=== PATIENT | male | born 1970 | race Caucasian/White ===

== ENCOUNTER → 2021-02-27 15:09 | Outpatient (CLI) | payer OTHER, SELFPAY ==
--- NOTE | ~2021-02-27 | XR_ITS ---
XR finger 3rd LT min 2V DATE: 02/27/2021 15:23 INDICATION: Left third finger mass TECHNIQUE: 4 views COMPARISON: None FINDINGS: There is focal prominent soft tissue thickening along the dorsal lateral aspect of the midd le phalanx. No fracture, dislocation, periosteal reaction or bone destruction. IMPRESSION: Focal soft tissue swelling of the mid digit Reviewed, dictated and finalized at location A.
== END ==
PROVIDERS: PCP Family Medicine Adolescent Medicine; Visit Provider Specialist
DX: R22.32 Localized swelling, mass and lump, left upper limb (principal)
CPT/HCPCS: 73140

== ENCOUNTER 2023-05-14 22:50 | Emergency (ER) | payer OTHER, SELFPAY ==
--- NOTE | ~2023-05-14 | CT_ITS ---
Non-contrast CT scan of the Abdomen and Pelvis Clinical indication: Right flank pain Technique: 2.5 mm axial scans were obtained through the abdomen and pelvis without intravenous or or al contrast. Dose reduction technique was used on this scan by utilizing automated exposure control a nd iterative reconstruction technique. The dose-length product (DLP) was 1092.66 mGy-cm. Findings: Images through the lung bases reveal no abnormalities. There is a 3 mm stone at the right UVJ, with mild right hydroureteronephrosis. No left renal or left ureteral stone. No left hydronephrosis. Diffuse fatty infiltration of the liver noted. The spleen, pancreas, gallbladder, and adrenals appear normal. There is no aortic aneurysm. There is no evidence of bowel obstruction. Normal appendix. Images through the pelvis were performed. There is no evidence of ascites or lymphadenopathy. Prostat e gland and seminal vesicles are unremarkable. Urinary bladder unremarkable. Impression: 3 mm right UVJ stone, with mild right hydroureteronephrosis. Diffuse fatty infiltration of the liver. Reviewed, dictated and finalized at [facility]. Impression: 3 mm right UVJ stone, with mild right hydroureteronephrosis. Diffuse fatty infiltration of the liver.
--- NOTE | 2023-05-14 22:53 | ED.ABDPAIN ---
HPI - Abdominal Pain General Chief Complaint: Back Pain/Injury Stated Complaint: Kidney Stone Time Seen by Provider: 05/14/23 22:51 Source: patient Mode of arrival: ambulatory Limitations: no limitations History of Present Illness HPI narrative: 52-year-old male a history kidney stones in 2005, 2007, status post ESBL,psoriasis, hypertension, diabetes mellitus presents to the ER with a 2 hour history of -- right flank pain radiating to his groin and testicle. Pain is intermittent. No aggravating or relieving factors. -- Nausea with 1 episode of vomiting. No fever MD elicited complaint: flank pain Pertinent past history: kidney stones Onset (ago): hour(s) ( started 2 hours ago) Pain Consistency: intermittent Location: R flank Severity: severe Quality: cramping Radiation: RLQ Exacerbating factors: nothing Relieving factors: nothing Associated symptoms: nausea and vomiting Related Data Home Medications Medication Instructions Recorded Confirmed guselkumab 100 mg/mL subcutaneous 100 mg subcut ONCE 09/19/22 05/14/23 auto-injector (Tremfya) sitagliptin phos 50 mg-metformin 2 tablet PO DAILY 03/01/23 05/14/23 ER 1,000 mg tablet,extend rel 24h mp (Janumet XR) Allergies Allergy/AdvReac Type Severity Reaction Status Date / Time No Known Allergies Allergy Mild Verified 02/06/23 15:19 Review of Systems Review of Systems: All systems reviewed & are unremarkable except as noted in HPI and below Constitutional: Constitutional: Reports as per HPI and Reports no additional constitutional complaints Eyes: Eyes: Reports as per HPI and Reports no additional eye complaints ENT: Reports system reviewed and no additional complaints, except as documented and Reports as per HPI Cardiovascular: Cardiovascular: Reports as per HPI and Reports no additional cardiovascular complaints Respiratory: Respiratory: Reports as per HPI and Reports no additional respiratory complaints Gastrointestinal: Gastrointestinal: Reports as per HPI and Reports no additional gastrointestinal complaints Comments: right flank pain radiating to his groin and right testicle Genitourinary: Genitourinary: Reports no additional male genitourinary complaints and Reports as per HPI Musculoskeletal: Musculoskeletal: Reports no additional musculoskeletal complaints and Reports as per HPI Integumentary/Breasts: Skin/Breast: Reports system reviewed and no additional complaints, except as docu and Reports as per HPI Neurologic: Reports system reviewed and no additional complaints, except as documented and Reports as per HPI Psychiatric: Psychiatric: Reports no additional psychiatric complaints and Reports as per HPI Endocrine: Endocrine: Reports no additional endocrine complaints and Reports as per HPI Hematologic/Lymphatic: Hematologic/Lymphatic: Reports no additional hematologic/lymphatic complaints and Reports as per HPI Allergic/Immunologic: Allergic/Immunologic: Reports no additional allergic/immunologic complaints and Reports as per HPI [facility], [facility] Past Medical History Medical History (Updated 05/15/23 @ 00:27 by Brian Armendariz MD) History of renal stone (~2005) Kidney stone Family History Family History Mother Hypertension Bladder cancer Social History Social History Smoking status: Never smoker Exam Const: General: ill appearing Nutritional Appearance: obese Orientation/consciousness: patient oriented x3 Limitations: no limitations HENMT: Head: normal to inspection Ears: external ears normal Face/Nose/Sinus: Normal external nose present Face and sinus: normal facial exam Throat: posterior oropharynx normal Eyes: Conjunctivae: conjunctivae normal Pupils: Equal, round and reactive pupils present EOM: EOMs intact bilaterally Direct Ophthalmoscopy: no photophobia Neck: Neck: normal visual inspection, n
[2023-05-14] MEDS: SODIUM CHLORIDE 0.9% IV 1,000 ML 1000 ML (23:00)
[2023-05-14] MEDS: KETOROLAC 30 MG/ML VIAL (*BKC) (23:00)
[2023-05-14 23:04] VITALS: BP 143/118; PULSE 92; RESP 20; TEMP 37.2; O2SAT 97
[2023-05-14 23:08] LABS: Basophils Absolute Auto 0.05 K/mm3 (0.00-0.10); Basophils Percent Auto 0.4 % (0.0-1.0); Eosinophils Absolute Auto 0.13 K/mm3 (0.02-0.50); Hematocrit 49.6 % (40.0-54.0); Hemoglobin 16.7 g/dL (14.0-18.0); Immature Granulocyte Absolute 0.04 K/mm3 (0.00-0.00); Immature Granulocyte Percent A 0.3 % (0.0-0.0); Lymphocytes Percent Auto 24.5 % (18.0-42.0); Mean Corpuscular HGB Conc 33.7 g/dL (32.0-36.0); Mean Corpuscular Hemoglobin 28.2 pg (27.0-31.0); Mean Corpuscular Volume 83.6 fL (78.0-102.0); Mean Platelet Volume 10.1 fl (8.7-11.0); Monocytes Percent Auto 6.9 % (2.0-11.0); Neutrophils Absolute Auto 8.7 K/mm3 (1.7-7.2); Neutrophils Percent Auto 66.9 % (50.0-70.0); Platelet Count Result 312 K/mm3 (150-420); Red Blood Count 5.93 M/mm3 (4.70-6.10)
[2023-05-14 23:23] LABS: Alanine Aminotransferase 48 U/L (16-63); Albumin Level 3.9 g/dL (3.4-5.0); Alkaline Phosphatase 84 U/L (46-116); Anion Gap 13 mmol/L (8-16); Aspartate Amino Transferase 28 U/L (15-37); Bilirubin,Total 0.6 mg/dL (0.00-1.00); Blood Urea Nitrogen 21 mg/dL (7-18); Calcium 9.4 mg/dL (8.5-10.1); Carbon Dioxide 25 mmol/L (21-32); Chloride 99 mmol/L (98-108); Estimated CRCL calculation 111 ml/min; Estimated Glomerular Filt Rate > 60; Glucose 185 mg/dL (70-99); Lipase 42 U/L (16-77); Osmolality Calculated 292 mOsm/kg (285-295); Potassium 3.9 mmol/L (3.5-5.1); Sodium 137 mmol/L (136-145)
[2023-05-14 23:27] LABS: Lactic Acid Reflex 2.7 mmol/L (0.4-2.0)
[2023-05-14 23:55] LABS: Appearance Urine Cloudy (Clear); Bilirubin Urine 1+ (Negative); Blood Urine 3+ (Negative); Glucose Urine UA Negative (Negative); Ketones Urine 1+ (Negative); Leukocyte Esterase Ur Trace LEU/UL (Negative); Nitrate Urine Negative (Negative); Protein Urine 2+ (Negative); Specific Grav Ur >= 1.030 (1.010-1.020); pH Urine 5.5 (5.0-8.0)
[2023-05-15 00:03] LABS: Add Urine Microscopic? YES; Bacteria Urine 1+ /hpf; Color Urine Dark Brown (Yellow); RBC Urine >75 /hpf (0-2); Squamous Epithelial Cell Urine Rare /hpf (Few)
[2023-05-15] MEDS: TAMSULOSIN HCL 0.4 MG CAPSULE PO (00:26)
[2023-05-15 00:44] VITALS: BP 144/96; PULSE 89; RESP 15; TEMP 36.6; O2SAT 98
[2023-05-15 02:05] LABS: Reflex Lactic Acid Yes or No Add Lactic
== END 2023-05-15 00:46 | disposition home or self-care (01) ==
LOC: CHSED 05-15 00:31
PROVIDERS: Emergency Provider Internal Medicine Critical Care Medicine
DX: N20.0 Calculus of kidney (principal); I10 Essential (primary) hypertension; E11.9 Type 2 diabetes mellitus without complications
CPT/HCPCS: 36415; 74176; 80053; 81001; 83605; 83690; 85025; 96361; 96374; 99284; A9270; J1885; J7030

== ENCOUNTER 2024-03-02 10:43 | Emergency (ER) | payer OTHER, SELFPAY ==
--- NOTE | ~2024-03-02 | CT_ITS ---
Non-contrast CT scan of the Abdomen and Pelvis Clinical indication: Right flank pain Technique: 2.5 mm axial scans were obtained through the abdomen and pelvis without intravenous or or al contrast. Dose reduction technique was used on this scan by utilizing automated exposure control a nd iterative reconstruction technique. The dose-length product (DLP) was 1786.78 mGy-cm. Findings: Images through the lung bases reveal no abnormalities. There is a 5-6 mm round stone at the mid right ureter, with mild to moderate right hydroureteronephro sis to this level. No left renal or left ureteral stone. No left hydronephrosis. Diffuse hepatic steatosis noted. The spleen, pancreas, gallbladder, and adrenals appear normal. Ther e is no aortic aneurysm. There is no evidence of bowel obstruction. Very small fat-containing umbilical hernia noted. Images through the pelvis were performed. There is no evidence of ascites or lymphadenopathy. Urinary bladder unremarkable. No pelvic mass seen. Impression: 5-6 mm mid right ureteral stone, as detailed above, with associated hydroureteronephrosis to this lev el. Reviewed, dictated and finalized at location M. Impression: 5-6 mm mid right ureteral stone, as detailed above, with associated hydroureter onephrosis to this level.
--- NOTE | ~2024-03-02 | XR_ITS ---
EXAMINATION: XR abdomen/kub 1V DATE: 03/02/2024 15:09 INDICATION: Nephrolithiasis with right flank pain TECHNIQUE: A supine view of the abdomen on 2 radiographs was obtained. COMPARISON: CT dated 03/02/2024 FINDINGS: Couple small phleboliths in the left and right pelvis. The stone identified in the mid right ureter o n prior CT is unable be identified on the provided radiographs density superimposed over the L5 verte bral body given the position on prior CT. No other evident urolithiasis. Normal bowel gas pattern. Sc lerotic bone islands in the right innominate bone. IMPRESSION: 1. Mid right ureteral stone seen on prior CT unable be identified on the plain radiographs, potential ly superimposed over the L5 vertebral body given the position on prior CT. Reviewed, dictated and finalized at location A. IMPRESSION: 1. Mid right ureteral stone seen on prior CT unable be identified on the plain radiographs, potentially superimposed over the L5 vertebral body given the posi tion on prior CT.
[2024-03-02 11:03] VITALS: BP 141/80; PULSE 75; RESP 18; TEMP 36.2; O2SAT 95
[2024-03-02 12:06] LABS: Basophils Percent Auto 0.2 % (0.2-1.2); Eosinophils Absolute Auto 0.1 K/mm3 (0-0.3); Eosinophils Percent Auto 0.6 % (0-4.4); Hematocrit 45.8 % (42.0-52.0); Hemoglobin 15.3 g/dL (14.0-18.0); Immature Granulocyte Absolute 0.04 K/mm3 (0.00-0.031); Immature Granulocyte Percent A 0.4 % (0-0.5); Lymphocytes Absolute Auto 2.23 K/mm3 (0.9-3.2); Lymphocytes Percent Auto 22.5 % (18.3-44.2); Mean Corpuscular HGB Conc 33.4 g/dl (32-36); Mean Corpuscular Hemoglobin 28.3 pg (26-34); Mean Corpuscular Volume 84.7 fl (80-100); Mean Platelet Volume 10.1 fl (7.4-10.4); Monocytes Absolute Auto 0.7 K/mm3 (0.1-0.6); Monocytes Percent Auto 7.2 % (2.6-8.5); Neutrophils Absolute Auto 6.9 K/mm3 (1.3-6.7); Neutrophils Percent Auto 69.1 % (45.5-73.1); Platelet Count Result 296 k/mm3 (150-375); Red Blood Count 5.41 M/mm3 (4.6-6.20); Red Cell Distribution Width 13.2 % (11.5-14.5); White Blood Count 9.9 K/mm3 (4.5-10.0)
[2024-03-02 12:13] LABS: Appearance Urine Clear (Clear); Bacteria Urine None Seen /hpf; Bilirubin Urine Negative (Negative); Blood Urine 3+ (Negative); Color Urine Yellow (Yellow); Glucose Urine UA Negative (Negative); Ketones Urine Trace mg/dL (Negative); Leukocyte Esterase Ur Negative LEU/UL (Negative); Nitrate Urine Negative (Negative); Non Pathogenic Casts 0-2; Protein Urine Negative (Negative); RBC Urine >100 /hpf (0-2); Specific Grav Ur 1.022 (1.001-1.035); Squamous Epithelial Cell Urine None Seen /hpf (Few); WBC Urine 0-5 /hpf (0-3); pH Urine 5.5 (5.0-9.0)
[2024-03-02 12:20] LABS: Alanine Aminotransferase 33 U/L (6-50); Albumin Level 4.4 g/dL (3.5-5.1); Alkaline Phosphatase 86 U/L (38-126); Anion Gap 6 mmol/L (4-12); Aspartate Amino Transferase 31 U/L (17-59); Bilirubin,Total 0.8 mg/dL (0.2-1.3); Blood Urea Nitrogen 21 mg/dL (9-20); Calcium 9.2 mg/dL (8.4-10.2); Carbon Dioxide 29 mmol/L (22-30); Chloride 98 mmol/L (98-107); Estimated CRCL calculation 87 ml/min; Estimated Glomerular Filt Rate > 60; Glucose 181 mg/dL (65-110); Potassium 3.8 mmol/L (3.4-5.0); Sodium 133 mmol/L (137-145)
[2024-03-02 12:26] LABS: Add Urine Microscopic? YES
[2024-03-02] MEDS: ONDANSETRON INJ 4 MG/2 ML VIAL IV PUSH (12:45)
--- NOTE | 2024-03-02 13:01 | ED.ABDPAIN ---
HPI - Abdominal Pain General Chief Complaint: Abdominal Pain Stated Complaint: kidney stone Time Seen by Provider: 03/02/24 12:19 History of Present Illness HPI narrative: Pt presents with intermittent right flank pain radiating to groing for the last few days. Pt has had similar issues over the last tow months and has kidney stones so he assumed it was a stone. Pt says he has been having intermittent pain for months but it was going away and not too severe unti it got worse over weekend. Related Data Home Medications Medication Instructions Recorded Confirmed guselkumab 100 mg/mL subcutaneous 100 mg subcut ONCE 09/19/22 10/03/23 auto-injector (Tremfya) Allergies Allergy/AdvReac Type Severity Reaction Status Date / Time No Known Allergies Allergy Mild Verified 03/02/24 10:44 Review of Systems Review of Systems: All systems reviewed & are unremarkable except as noted in HPI and below PMFSH Past Medical History Medical History History of renal stone (~2005) Kidney stone Family History Family History Mother Hypertension Bladder cancer Social History Social History Smoking status: Never smoker Exam Const: General: healthy appearing and no acute distress Nutritional Appearance: well nourished Orientation/consciousness: patient oriented x3 Limitations: no limitations Neck: Neck: normal visual inspection and no lymphadenopathy Resp: Effort & Inspection: normal respiratory effort Auscultation: clear to auscultation bilaterally Cardio: Rate: regular rate Rhythm: regular rhythm GI: GI Palp: Yes Soft to palpation Auscultation: normal bowel sounds Back/Spine/Pelvis: Back: CVA tenderness (right) Skin: General skin exam: normal color Rashes: no rashes Wounds: no wounds Neuro: General: patient oriented x3, moves all extremities and no focal motor deficits Speech: normal speech Extrem: General: normal to inspection and no clubbing, cyanosis or edema Psych: Mental Status: mental status grossly normal Affect: normal affect Course Vital Signs Vital signs: Vital Signs Temperature 97.1 F L 03/02/24 11:03 Pulse Rate 75 03/02/24 11:03 Respiratory Rate 18 03/02/24 11:03 Blood Pressure 141/80 H 03/02/24 11:03 Pulse Oximetry 95 03/02/24 11:03 Oxygen Delivery Room Air 03/02/24 11:03 Temperature 97.1 F L 03/02/24 11:03 Pulse Rate 74 03/02/24 14:56 Respiratory Rate 18 03/02/24 14:56 Blood Pressure 110/74 03/02/24 14:56 Pulse Oximetry 95 03/02/24 14:56 Oxygen Delivery Room Air 03/02/24 11:03 MDM - Abdominal Pain MDM Narrative Medical decision making narrative: Pt has right flank pain off and on for weeks worse last few days. Pt has 5-6 mm round stone mid ureter with mod hydro ua only blood. discussed with Dr Ramirez and agrees to see outpatient. Differential Diagnosis Differential diagnosis: Likely abdominal pain, calculus of kidney, constipation, diverticulitis, small bowel obstruction and other (back pain) Lab Data 03/02/24 11:56 03/02/24 11:55 Labs: Lab Results 03/02/24 03/02/24 Range/Units 11:55 11:56 WBC 9.9 (4.5-10.0) K/mm3 RBC 5.41 (4.6-6.20) M/mm3 Hgb 15.3 (14.0-18.0) g/dL Hct 45.8 (42.0-52.0) % MCV 84.7 (80-100) fl MCH 28.3 (26-34) pg MCHC 33.4 (32-36) g/dl RDW 13.2 (11.5-14.5) % Plt Count 296 (150-375) k/mm3 MPV 10.1 (7.4-10.4) fl Immature Gran % (Auto) 0.4 (0-0.5) % Neut % (Auto) 69.1 (45.5-73.1) % Lymph % (Auto) 22.5 (18.3-44.2) % [facility] % (Auto) 7.2 (2.6-8.5) % Eos % (Auto) 0.6 (0-4.4) % Baso % (Auto) 0.2 (0.2-1.2) % Lymph # (Auto) 2.23 (0.9-3.2) K/mm3 [facility] # (Auto) 0.7 H (0.1-0.6) K/mm3 Eos # (Auto) 0.1 (0-0.3) K/mm3 Baso # (Auto) 0.0 (0.0-0.1)
[2024-03-02 13:08] VITALS: BP 108/71; PULSE 64; RESP 20; O2SAT 94
[2024-03-02 14:56] VITALS: BP 110/74; PULSE 74; RESP 18; O2SAT 95
== END 2024-03-02 15:09 | disposition home or self-care (01) ==
PROVIDERS: Student in an Organized Health Care Education/Training Program; Emergency Provider Emergency Medicine; PCP Family Medicine Adolescent Medicine
DX: N13.2 Hydronephrosis with renal and ureteral calculous obstruction (principal); Z87.442 Personal history of urinary calculi
CPT/HCPCS: 36415; 74018; 74176; 80053; 81001; 85025; 96374; 99284; J2405

== ENCOUNTER 2025-08-13 08:38 | Emergency (ER) | payer BC, SELFPAY ==
--- OUTSIDE RECORDS SUMMARY | 2008-12-05 19:00 | XMS_ITS | Continuity of Care Document ---
Author Organization [facility] Address [address] [facility] [address] [place] [address] Phone Care Team Providers Care Creel Hand Name Role Phone Diann Vazquez DO Unavailable Unavailable Procedures Procedure Date Respirator Questionnaire Form Review Nov Audiogram Interpretation Only 8 Advance Directives Directive Yes / No Effective Date File Name No Information Encounters Encounter Description Practice Location Reason(s) For Visit Diagnoses Date Provider Providers Copied on Encounter [facility], [address], [address] [place] [address], tel:[phone] [facility] No Information 9 Taylor Tidwell. [address] [facility], [address], [address] [place] [address] , . tel: [phone] [facility], [address], [address] [place] [address], tel:[phone] [facility] No Information 8 Taylor Tidwell. [address], [address] [place] [address] , . tel: [phone] Family History Family Member Type Diagnosis Age At Onset No Information Payers Payer name Insurance type Covered alliance party ID Authoralbera gomez(s) [facility] [id number] Social History Type Description Quantity Date Captured Comments Sex Male Smoking Status No Information Chief Complaint And Reason For Visit No Information Reason For Referral Reason For Referral No Information History Of Present Illness Encounter Date Complaint History Of Prese nt Illness No Information Functional Status Date Functional Assessmen t No Information Instructions Date Instruction Additional Infor mation No Information Assessments Type Assessment Date No Information Patient Care Teams Name Effective Dates (start - stop) Status Members No Information
--- OUTSIDE RECORDS SUMMARY | 2008-12-05 19:00 | XMS_ITS | Continuity of Care Document ---
Author Organization [facility] Address [address] [facility] [address] [place] [address] Phone Care Team Providers Care Sr. Vendor Management Associate Name Role Phone Diann Vazquez DO Unavailable Unavailable Procedures Procedure Date Respirator Questionnaire Form Review Nov Audiogram Interpretation Only 8 Advance Directives Directive Yes / No Effective Date File Name No Information Encounters Encounter Description Practice Location Reason(s) For Visit Diagnoses Date Provider Providers Copied on Encounter [facility], [address], [address] [place] [address], tel:[phone] [facility] No Information 9 Taylor Tidwell. 10[address] [facility], [address], [address] [place] [address] , . tel: [phone] [facility], [address], [address] [place] [address], tel:[phone] [facility] No Information 8 Taylor Tidwell. [address], [address] [place] [address] , . tel: [phone] Family History Family Member Type Diagnosis Age At Onset No Information Payers Payer name Insurance type Covered democrat ID Authoralbera gomez(s) [facility] [id number] Social History Type Description Quantity Date Captured [...]
--- NOTE | ~2025-08-13 | CT_ITS ---
CT ABDOMEN AND PELVIS WITHOUT CONTRAST Clinical History: right flank rt groin pain, hx renal stones Comparison: CT abdomen pelvis 03/02/2024 Technique: Unenhanced axial images lung bases to symphysis pubis Coronal, sagittal reformats CT images acquired with automatic exposure control for dose reduction DLP: 1542 mGy-cm Findings: Without intravenous contrast, sensitivity for detecting visceral parenchymal abnormalities decreased. Lung bases: Clear. Visualized heart and pericardium: Unremarkable. Liver: Steatosis. Enlarged. Gallbladder: Unremarkable. Spleen: Unremarkable. Pancreas: Unremarkable. Adrenal glands: Unremarkable. Kidneys: Right kidney- Hydronephrosis. 8 mm intrarenal stone. 5 mm stone mid ureter. Left kidney- No hydronephrosis. No renal stones. Distal esophagus/stomach: Unremarkable. Small bowel loops: Normal caliber and wall thickness. Colon: Diverticula. Normal caliber and wall thickness. Normal RLQ appendix. Nodes: No enlarged nodes. Peritoneum: No ascites. No free intraperitoneal air. Urinary bladder: Unremarkable. Prostate: Unremarkable. Bones: No acute bony abnormality. Soft tissues: Small umbilical hernia with fat. Unopacified abdominal aorta: No aneurysmal dilatation. IMPRESSION: 1. Hydronephrosis right kidney due to 5 mm stone mid ureter. Additional 8 mm intrarenal stone right kidney. 2. No other acute abnormality. Reviewed, dictated and finalized at location R. IMPRESSION: 1. Hydronephrosis right kidney due to 5 mm stone mid ureter. Additional 8 mm i ntrarenal stone right kidney. 2. No other acute abnormality.
[2025-08-13 08:49] VITALS: BP 155/90; PULSE 88; RESP 16; TEMP 36.3; O2SAT 99
[2025-08-13 09:03] VITALS: BP 151/78; PULSE 76; RESP 17; O2SAT 100
[2025-08-13 09:09] LABS: Hematocrit 48.8 % (42.0-52.0); Hemoglobin 16.7 g/dL (14.0-18.0); Immature Granulocyte Percent A 0.3 % (0-0.5); Lymphocytes Absolute Auto 2.41 K/mm3 (0.9-3.2); Mean Corpuscular HGB Conc 34.2 g/dl (32-36); Mean Corpuscular Hemoglobin 28.3 pg (26-34); Mean Corpuscular Volume 82.6 fl (80-100); Nucleated Red Blood Cells Absolute Auto 0.000 K/mm3 (0.0-0.012); Nucleated Red Blood Cells Perc 0.0 % (0.0-0.2); Platelet Count Result 276 k/mm3 (150-375); Red Blood Count 5.91 M/mm3 (4.6-6.20); White Blood Count 9.5 K/mm3 (4.5-10.0)
[2025-08-13 09:19] LABS: Add Urine Microscopic? YES; Appearance Urine Cloudy (Clear); Glucose Urine UA Negative (Negative); Leukocyte Esterase Ur 1+ LEU/UL (Negative); Nitrate Urine Negative (Negative); Non Pathogenic Casts 0-2; Specific Grav Ur 1.027 (1.001-1.035)
[2025-08-13 09:30] LABS: Alanine Aminotransferase 42 U/L (6-50); Albumin Level 4.4 g/dL (3.5-5.1); Alkaline Phosphatase 90 U/L (38-126); Anion Gap 9 mmol/L (4-12); Aspartate Amino Transferase 37 U/L (17-59); Bilirubin,Total 0.8 mg/dL (0.2-1.3); Blood Urea Nitrogen 19 mg/dL (9-20); Calcium 9.5 mg/dL (8.4-10.2); Carbon Dioxide 25 mmol/L (22-30); Chloride 101 mmol/L (98-107); Estimated CRCL calculation 96 ml/min; Estimated Glomerular Filt Rate > 60; Glucose 150 mg/dL (65-110); Potassium 3.6 mmol/L (3.4-5.0); Sodium 135 mmol/L (137-145); Total Protein 7.6 g/dL (6.3-8.2)
[2025-08-13] MEDS: ONDANSETRON INJ 4 MG/2 ML VIAL IV PUSH (09:51)
[2025-08-13] MEDS: HYDROmorphone HCL INJ (*CRX) 1 MG/ML SYR IV PUSH (09:53)
[2025-08-13 09:58] VITALS: BP 139/92; PULSE 74; RESP 14; O2SAT 94
[2025-08-13] MEDS: LACTATED RINGERS 1,000 ML 999 ML IV CONT (09:58)
--- NOTE | 2025-08-13 10:00 | ED_ITS ---
HPI - General Adult General Chief complaint: Urogenital-Male Stated complaint: kidney stone Time Seen by Provider: 08/13/25 08:59 History of Present Illness HPI narrative: 55-year-old male present to the emergency department for evaluation for right flank pain. Patient does have a prior history of kidney stones. Patient was having right flank pain about 2 days ago and the pain improved. Pain returned again this morning. Patient did taking Dryden for pain control. Patient reports he did have some emesis just prior to evaluation. Patient does suspect this is a kidney stone. Related Data Home Medications ?Medication ?Instructions ?Recorded ?Confirmed ?Last Taken ?Type guselkumab 100 mg/mL subcutaneous 100 mg subcut ONCE 1 11/19/21 05/19/25 Unknown History auto-injector (Tremfya) Allergies Allergy/AdvReac Type Severity Reaction Status Date / Time No Known Allergies Allergy Mild Verified 08/13/25 08:51 Review of Systems 2 Review of Systems: All systems reviewed & are unremarkable except as noted in HPI and below PMFSH Past Medical History Medical History Kidney stone History of renal stone (~2005) Family History Family History Mother Hypertension Bladder cancer Social History Social History Smoking status: Never smoker Exam 2 Narrative: APPEARANCE: Well appearing, no pain, no distress, well-nourished. HEAD: normocephalic, atraumatic. EYES: PERRLA/EOMI, conjunctivae clear. NOSE: Normal no drainage EARS:TMS clear with good light reflex. THROAT: Pharynx clear, no exudate. NECK: Supple. No adenopathy, no masses. RESPIRATORY: Airway patent, respirations nonlabored. Clear to auscultation bilaterally, no rales, rhonchi, wheezing. CARDIOVASCULAR: Regular rate and rhythm without murmurs rubs or gallops. ABDOMINAL: Soft, nontender, nondistended, normal bowel sounds MUSCULOSKELETAL: Moves all extremities. Strength/ROM intact, No edema, No calf tenderness. NEURO: Alert. Cranial nerves II through XII intact. Good gait. Good coordination SKIN: Warm, dry. Normal Color PSYCHIATRIC: Normal affect/mood. Course Vital Signs Vital signs: Vital Signs Temperature 97.4 F L 08/13/25 08:49 Pulse Rate 88 08/13/25 08:49 Respiratory Rate 16 08/13/25 08:49 Blood Pressure 155/90 H 08/13/25 08:49 Pulse Oximetry 99 08/13/25 08:49 Temperature 97.4 F L 08/13/25 08:49 Pulse Rate 73 08/13/25 11:00 Respiratory Rate 18 08/13/25 11:00 Blood Pressure 130/85 08/13/25 11:00 Pulse Oximetry 96 08/13/25 11:00 Medical Decision Making MDM Narrative Medical decision making narrative: 55-year-old male presents to emergency department for evaluation for right flank pain. Patient does have history of kidney stones. Patient is afebrile with no leukocytosis hemoglobin of 16.7. No acute abnormalities on his CMP UA was positive for blood. CT scan does show a 5 mm ureteral calculi on the right. His pain was improved with Dilaudid. Patient will provide Dryden 10s for pain control, patient does take Flomax and patient will be provided 4 mg Zofran ODTs. Differential Diagnosis Differential Diagnosis: Urinary tract infection, kidney stone, colitis, diverticulitis, appendicitis Vital Signs Vital Signs: Vital Signs Temperature 97.4 F L 08/13/25 08:49 Pulse Rate 88 08/13/25 08:49 Respiratory Rate 16 08/13/25 08:49 Blood Pressure 155/90 H 08/13/25 08:49 Pulse Oximetry 99 08/13/25 08:49 Temperature 97.4 F L 08/13/25 08:49 Pulse Rate 73 08/13/25 11:00 Respiratory Rate 18 08/13/25 11:00 Blood Pressure 130/85 08/13/25 11:00 Pulse Oximetry 96 08/13/25 11:00 Lab Data Lab results reviewed: Yes I reviewed the patient's lab results. 08/13/25 09:03 08/13/25 09:03 Labs: Lab Results 08/13/25 Range/Units 09:03 WBC 9.5 (4.5-10.0) K/mm3 RBC 5.91 (4.6-6.20) M/mm3 Hgb 16.7 (14.0-18.0) g/dL Hct 48.8 (42.0-52.0) % MCV 82.6 (80-100) fl MCH 28.3 (26-34) pg MCHC 34.2 (32-36) g/dl RDW 13.4 (11.5-14.5) % Plt Count 276 (150-375) k/mm3 MPV 10.3 (7.4-10.4) fl Immature Gran % (Auto) 0.3 (0-0.5) % Neut % (Auto) 65.1 (45.5-73.1) % Lymph % (Auto) 25.4 (18.3-44.2) % [facility] % (Auto) 8.5 (2.6-8.5) % Eos % (Auto) 0.4 (0-4.4) % Baso % (Auto) 0.3 (0.2-1.2) % Lymph # (Auto) 2.41 (0.9-3.2) K/mm3 [facility] # (Auto) 0.8 H (0.1-0.6) K/mm3 Eos # (Auto) 0.0 (0-0.3) K/mm3 Baso # (Auto) 0.0 (0.0-0.1) K/mm3 Abs Immat Gran (auto) 0.03 (0.00-0.031) K/mm3 Absolute Neuts (auto) 6.2 (1.3-6.7) K/mm3 Absolute Nucleated RBC 0.000 (0.0-0.012) K/mm3 Nucleated RBC % 0.0 (0.0-0.2) % Sodium 135 L (137-145) mmol/L Potassium 3.6 (3.4-5.0) mmol/L Chloride 101 (98-107) mmol/L Carbon Dioxide 25 (22-30) mmol/L Anion Gap 9 (4-12) mmol/L BUN 19 (9-20) mg/dL Creatinine 1.05 (0.7-1.3) mg/dL Estim Creat Clear Calc 96 ml/min Estimated GFR > 60 (59 - ) Glucose 150 H (65-110) mg/dL Calcium 9.5 (8.4-10.2) mg/dL Total Bilirubin 0.8 (0.2-1.3) mg/dL AST 37 (17-59) U/L ALT 42 (6-50) U/L Alkaline Phosphatase 90 (38-126) U/L Total Protein 7.6 (6.3-8.2) g/dL Albumin 4.4 (3.5-5.1) g/dL Urine Color Yellow (Yellow) Urine Appearance Cloudy H (Clear) Urine pH 6.5 (5.0-9.0) Ur Specific Gillespie 1.027 (1.001-1.035) Urine Protein 1+ H (Negative) mg/dL Urine Glucose (UA) Negative (Negative) mg/dL Urine Ketones 1+ H (Negative) mg/dL Ur Blood (Man) 3+ H (Negative) Urine Nitrate Negative (Negative) Urine Bilirubin Negative (Negative) Urine Urobilinogen 1.0 (<2.0) mg/dL Leukocyte Esterase Rfl 1+ H (Negative) GAMAL/UL Urine RBC >100 H (0-2) /hpf Urine WBC 6-10 H (0-3) /hpf Ur Squamous Epith Cells None seen (Few) /hpf Urine Bacteria None seen /hpf Urine Casts 0-2 Imaging Data Radiologist's impression: Impressions Abdomen/Pelvis CT 08/13/25 10:25 IMPRESSION: 1. Hydronephrosis right kidney due to 5 mm stone mid ureter. Additional 8 mm intrarenal stone right kidney. 2. No other acute abnormality. Discharge Plan Discharge Clinical Impression: Calculus, ureteral Patient Disposition: Home Condition: Stable Instructions: Antibiotic Form, Kidney Stones (ED), Renal Colic (ED), How to Strain Your Urine (ED) Additional Instructions: Ibuprofen for pain control, Dryden as needed for additional pain control. Zofran as needed for nausea control. Continue your Flomax as directed. Strain your urine as instructed. Have close follow-up with Urology. If you have any worsening symptoms then please call or return to the emergency department. Patient Language: Uzbek Prescriptions: New ondansetron 4 mg tablet,disintegrating 4 mg PO Q8H PRN (Reason: nausea and vomiting) Qty: 14 0RF hydrocodone-acetaminophen 10-325 mg tablet 1 tablet PO BID PRN (Reason: pain) Qty: 10 0RF No Action (DME) blood pressure monitor Kit See Rx Instructions .Route Qty: 1 0RF Rx Instructions: daily (DME) blood-glucose meter [Accu-Chek Guide Glucose Meter] Misc See Rx Instructions .Route Qty: 1 0RF Rx Instructions: two times dialy (DME) Accu-Chek Guide test strips Strip See Rx Instructions .Route Qty: 100 0RF Rx Instructions: two times daily (DME) lancets [Accu-Chek Softclix Lancets] Misc See Rx Instructions .Route Qty: 200 0RF Rx Instructions: two times daily pioglitazone 30 mg tablet 30 mg PO DAILY Qty: 90 1RF Tremfya 100 mg/mL auto-injector 100 mg subcut ONCE ketotifen fumarate 0.025 % (0.035 %) drops 1 drp EACH EYE BID PRN (Reason: allergy symptoms) Qty: 5 0RF Rx Instructions: administer at least 8 hours apart lisinopril 5 mg tablet 5 mg PO DAILY Qty: 90 3RF atorvastatin 20 mg tablet 20 mg PO QHS Qty: 90 3RF hydrochlorothiazide 25 mg tablet See Rx Instructions .ROUTE .COMPLEX Qty: 90 3RF Dose Instruction: TAKE 1 TABLET DAILY Rx Instructions: TAKE 1 TABLET DAILY metoprolol succinate 100 mg tablet extended release 24 hr 100 mg PO DAILY Qty: 90 2RF Ozempic 2 mg/dose (8 mg/3 mL) pen injector 2 mg subcut WEEKLY Qty: 3 5RF tamsulosin 0.4 mg capsule 0.4 mg PO DAILY Qty: 30 1RF Follow-up/Referrals: Deborah Albert MD [Physician, Urology] Calvin Wilcox MD [Primary Care Provider, Family Practice]
[2025-08-13 11:00] VITALS: BP 130/85; PULSE 73; RESP 18; O2SAT 96
[2025-08-13] MEDS: HYDROcodone/acetaminophen (*CRX) 10-325 MG TABLET 1 TAB PO (11:54)
[2025-08-13] MEDS: KETOROLAC 15 MG/ML VIAL (*BKC) IV PUSH (11:54)
== END 2025-08-13 12:00 | disposition home or self-care (01) ==
PROVIDERS: Emergency Provider Emergency Medicine; PCP Family Medicine Adolescent Medicine
DX: N13.2 Hydronephrosis with renal and ureteral calculous obstruction (principal); Z87.442 Personal history of urinary calculi
CPT/HCPCS: 36415; 74176; 80053; 81001; 85025; 87086; 96361; 96374; 96375; 99284; A9270; J1171; J1885; J2405; J7120